=== PATIENT | female | born 1950 | race Caucasian/White ===

== ENCOUNTER 2018-02-26 10:09 | Day surgery (SDC) | payer MEDICARE ==
[2018-02-23 09:11] VITALS: BMI 25.6
[~2018-02-26 10:09] MED LIST: LACTATED RINGERS 1,000 ML IV SCH; LIDOCAINE 1% 20 ML VIAL (10MG/ML) FOR IV START INTRADERMA PRN
[2018-02-26 10:31] VITALS: TEMP 98.7
[2018-02-26] MEDS ORDERED: LIDOCAINE 1% 20 ML VIAL (10MG/ML) FOR IV START INTRADERMA ONE (10:31)
[2018-02-26] MEDS ORDERED: LACTATED RINGERS 1,000 ML IV ONE (10:31)
[2018-02-26] MEDS ORDERED: PROPOFOL 10 MG/ML 20 ML VIAL IV ONE (10:56)
[2018-02-26] MEDS ORDERED: LIDOCAINE 1% INJ 10MG/ML (20 ML MDV) ONE (10:56)
--- NOTE | 2018-02-26 10:57 | P.GSHP ---
History of Present Illness H&P Date: 02/26/18 Chief Complaint: Screening colonoscopy This is a 67-year-old female who presents today for screening colonoscopy. Patient denies any significant GI complaints. Past Medical History Past Medical History: Osteoarthritis (OA), Pneumonia, Thyroid Disorder Additional Past Medical History / Comment(s): 2 "small aortic aneurysms", varicose veins, environmental allergies, History of Any Multi-Drug Resistant Organisms: None Reported Past Surgical History: Hysterectomy Additional Past Surgical History / Comment(s): hemorrhoidectomy, Past Anesthesia/Blood Transfusion Reactions: Motion Sickness Smoking Status: Former smoker - Past Family History Mother Family Medical History: Cancer Medications and Allergies Home Medications Medication Instructions Recorded Confirmed Type Calcium Carbonate [Calcium] 600 mg PO DAILY 02/23/18 02/23/18 History Levothyroxine Sodium [Synthroid] 50 mcg PO DAILY 02/23/18 02/23/18 History Loratadine-Pseudoeph 10-240 mg 1 each PO DAILY 02/23/18 02/23/18 History [Claritin-D 24 Hr] Allergies Allergy/AdvReac Type Severity Reaction Status Date / Time aspirin Allergy Dyspnea Verified 02/23/18 09:03 propoxyphene [From Darvon] Allergy Dyspnea Verified 02/23/18 09:03 Sulfa (Sulfonamide Allergy Vomiting Verified 02/23/18 09:04 Antibiotics) Surgical - Exam Vital Signs Temp Pulse Resp BP Pulse Ox 98.7 F 64 18 142/78 98 02/26/18 10:30 02/26/18 10:30 02/26/18 10:30 02/26/18 10:30 02/26/18 10:30 - General well developed, no distress - Eyes PERRL - ENT normal pinna - Neck no masses - Respiratory normal expansion - Cardiovascular Rhythm: regular - Abdomen Abdomen: soft, non tender Assessment and Plan Assessment: We'll perform screening colonoscopy.
--- NOTE | 2018-02-26 11:19 | P.OP ---
Date of Procedure: 02/26/18 Preoperative Diagnosis: Screening colonoscopy Postoperative Diagnosis: Right colon polyp Hepatic flexure polyp External hemorrhoids Procedure(s) Performed: Colonoscopy Anesthesia: MAC Surgeon: Geovani Boudreaux Pathology: other (Right colon polyp, hepatic flexure polyp) Condition: stable Disposition: PACU Description of Procedure: The patient's placed on the endoscopy table in the lateral position. She received IV sedation. Digital rectal exam was performed which revealed external hemorrhoids. The flexible colonoscope was then placed patient anus and passed throughout the entire colon. The ileocecal valve was visually is. The cecum appeared normal. In the ascending colon there was a small polyp seen was removed with the cold forcep. Scope was brought back and at the level hepatic flexure there was another polyp seen was removed with the snare. The remainder of the transverse colon, descending colon and sigmoid colon appeared normal. Scope was then brought back the rectum and this appeared normal. Scope was withdrawn for patient.
[2018-02-26 11:49] VITALS: PULSE 55; RESP 1
[2018-02-26 11:50] VITALS: BP 136/81
== END 2018-02-26 12:23 | disposition home or self-care (01) ==
LOC: ORWHC2ENDO 10:09
PROVIDERS: ATTEND Surgery
DX: Z12.11 Encounter for screening for malignant neoplasm of colon (principal); K63.5 Polyp of colon; D12.2 Benign neoplasm of ascending colon; K64.4 Residual hemorrhoidal skin tags; M19.90 Unspecified osteoarthritis, unspecified site; E07.9 Disorder of thyroid, unspecified; Z87.891 Personal history of nicotine dependence; Z79.890 Hormone replacement therapy; Z88.6 Allergy status to analgesic agent; Z88.2 Allergy status to sulfonamides; Z88.5 Allergy status to narcotic agent; Z79.899 Other long term (current) drug therapy
CPT/HCPCS: 88305; 45385; 45380; J2001; J2704

== ENCOUNTER → 2018-02-28 | Outpatient (CLI) | payer MEDICARE ==
--- NOTE | 2018-03-01 08:34 | MM ---
Reason for exam: additional evaluation requested from prior study. History: Patient is postmenopausal. Family history of breast cancer in mother at age 70 and breast cancer in 2 maternal aunts at age 60. Left breast biopsy denign at age 19. Indicated problem(s): other indicated problem in both breasts. Physical Findings: Nurse Summary: Skin lesions covering bilateral breasts. MG 3D Diag Mammo W/Cad LUZ Bilateral CC and MLO view(s) were taken. The breast tissue is heterogeneously dense. This may lower the sensitivity of mammography. There is a 4 mm right central inner anterior depth mass new from the prior. Ultrasound will be performed. There is a left medial middle depth asymmetry and an additional superior left asymmetry. ASSESSMENT: Incomplete: need additional imaging evaluation, BI-RAD 0 RECOMMENDATION: Special view mammogram of the left breast. Ultrasound of the right breast.
== END | disposition home or self-care (01) ==
LOC: RADMAMWWP 14:00
PROVIDERS: ATTEND Family Medicine
DX: N63.0 Unspecified lump in unspecified breast (principal)
CPT/HCPCS: 77066; G0279; 77062

== ENCOUNTER → 2018-03-20 | Outpatient (CLI) | payer MEDICARE ==
--- NOTE | 2018-03-21 07:03 | XR ---
EXAMINATION TYPE: XR chest 2V DATE OF EXAM: 03/20/2018 COMPARISON: NONE HISTORY: Shortness of breath TECHNIQUE: Frontal and lateral views of the chest are obtained. FINDINGS: Scattered senescent parenchymal changes noted. Hyperinflation compatible with COPD. No evidence for infiltrate. No evidence for atelectasis. Heart size is stable. Mediastinal structures are stable and grossly unremarkable. No evidence for hilar prominence. Degenerative changes dorsal spine. IMPRESSION: 1. No evidence for acute pulmonary disease.
--- NOTE | 2018-03-21 08:14 | MM ---
Reason for exam: additional evaluation requested from abnormal screening. Last mammogram was performed 1 month ago. History: Patient is postmenopausal. Family history of breast cancer in mother at age 70 and breast cancer in 2 maternal aunts at age 60. Benign excisional biopsy of the left breast, 1969. Physical Findings: See breast exam 02/28/18. MG 3D Follow Up No Charge LUZ Bilateral CC and MLO view(s) were taken. Spot compression CC, spot compression MLO, and ML view(s) were taken of the left breast. Prior study comparison: February 28, 2018, bilateral MG 3d diag mammo w/cad LUZ. The breast tissue is heterogeneously dense. This may lower the sensitivity of mammography. Finding: There is an equal density (isodense), circumscribed oval mass located 2 cm from the nipple in the inner quadrant, anterior position of the right breast. This appears to compress. Doesn't correlate with ultrasound. Short term follow up recommended. There is no discrete abnormality including area of concern. These results were verbally communicated with the patient and result sheet given to the patient on 03/20/18. ASSESSMENT: Probably benign, BI-RAD 3 RECOMMENDATION: Follow-up diagnostic mammogram of both breasts in 6 months.
--- NOTE | 2018-03-21 08:16 | USB ---
Reason for exam: additional evaluation requested from abnormal screening. History: Patient is postmenopausal. Family history of breast cancer in mother at age 70 and breast cancer in 2 maternal aunts at age 60. Benign excisional biopsy of the left breast, 1969. US Breast Workup Limited RT Right limited breast ultrasound including focal area of concern, retroareolar and axilla demonstrates a 1.2 x 0.6 x 0.4cm mixed lesion at 12 o'clock, a 0.6 x 0.6 x 0.2cm cystic lesion at 3 o'clock and a 0.4 x 0.3 x 0.3cm cystic lesion at 5 o'clock. These results were verbally communicated with the patient and result sheet given to the patient on 03/20/18. ASSESSMENT: Probably benign, BI-RAD 3 RECOMMENDATION: Ultrasound of the right breast in 6 months.
--- NOTE | 2018-03-22 11:11 | USB ---
Reason for exam: additional evaluation requested from abnormal screening. History: Patient is postmenopausal. Family history of breast cancer in mother at age 70 and breast cancer in 2 maternal aunts at age 60. Benign excisional biopsy of the left breast, 1969. US Breast Limited RT Right limited breast ultrasound including focal area of concern, retroareolar and axilla demonstrates a 1.2 x 0.6 x 0.4cm mixed lesion at 12 o'clock, a 0.6 x 0.6 x 0.2cm cystic lesion at 3 o'clock and a 0.4 x 0.3 x 0.3cm cystic lesion at 5 o'clock. These results were verbally communicated with the patient and result sheet given to the patient on 03/20/18. ASSESSMENT: Probably benign, BI-RAD 3 RECOMMENDATION: Ultrasound of the right breast in 6 months.
== END | disposition home or self-care (01) ==
LOC: RADMAMWWP 14:52
PROVIDERS: ATTEND Family Medicine
DX: R92.8 Other abnormal and inconclusive findings on diagnostic imaging of breast (principal); J18.9 Pneumonia, unspecified organism
CPT/HCPCS: 71046

== ENCOUNTER 2020-04-23 08:32 | Day surgery (SDC) | payer MEDICARE ==
[2020-04-21 16:14] VITALS: BMI 24.7
[~2020-04-23 08:32] MED LIST changes: +LIDOCAINE 1% (10MG/ML) FOR IV START INTRADERMA PRN; -LIDOCAINE 1% 20 ML VIAL (10MG/ML) FOR IV START INTRADERMA PRN
[2020-04-23 09:54] VITALS: RESP 16; TEMP 98
[2020-04-23] MEDS ORDERED: PROPOFOL 10 MG/ML 20 ML VIAL IV ONE (10:24)
[2020-04-23] MEDS ORDERED: MIDAZOLAM 2 MG/2 ML VIAL ONE (10:24)
[2020-04-23] MEDS ORDERED: fentaNYL (PF) 50 MCG/ML 2 ML AMP ONE (10:24)
--- NOTE | 2020-04-23 10:27 | P.GSHP ---
History of Present Illness H&P Date: 04/23/20 Chief Complaint: History: Polyps, constipation Is a 60-year-old female with history of colonic polyps. Patient rents today for colonoscopy. She's also had issues with constipation Past Medical History Past Medical History: Osteoarthritis (OA), Pneumonia, Thyroid Disorder Additional Past Medical History / Comment(s): 2 "aortic aneurysms", varicose veins, environmental allergies, pre-cancerous cervical cells., Constipation with blood in stool, painful bowelmovements , family hx cancer. History of Any Multi-Drug Resistant Organisms: None Reported Past Surgical History: Hysterectomy Additional Past Surgical History / Comment(s): hemorrhoidectomy, colonoscopy Past Anesthesia/Blood Transfusion Reactions: Motion Sickness Past Psychological History: Anxiety, Depression Smoking Status: Former smoker Past Alcohol Use History: Rare Additional Past Alcohol Use History / Comment(s): quit smoking over 50 yrs ago, smoked for 1 yr Past Drug Use History: None Reported - Past Family History Mother Family Medical History: Cancer Additional Family Medical History / Comment(s): family hx of cancer on mothers side. Medications and Allergies Home Medications Medication Instructions Recorded Confirmed Type Calcium Carbonate [Calcium] 600 mg PO DAILY 02/23/18 04/21/20 History Levothyroxine Sodium [Synthroid] 50 mcg PO DAILY 02/23/18 04/21/20 History Docusate Sodium [Dok] 1 dose PO DIRECTED PRN 04/21/20 04/21/20 History Loratadine 10 mg PO DAILY 04/21/20 04/21/20 History Meclizine [Antivert] 25 mg PO TID PRN 04/21/20 04/21/20 History buPROPion XL [Wellbutrin Xl] 150 mg PO DAILY 04/21/20 04/21/20 History Allergies Allergy/AdvReac Type Severity Reaction Status Date / Time aspirin Allergy Dyspnea Verified 04/23/20 09:35 propoxyphene [From Darvon] Allergy Dyspnea Verified 04/23/20 09:35 Sulfa (Sulfonamide Allergy Vomiting Verified 04/23/20 09:35 Antibiotics) Surgical - Exam Vital Signs Temp Pulse Resp BP Pulse Ox 98.0 F 67 16 130/73 98 04/23/20 09:45 04/23/20 09:45 04/23/20 09:45 04/23/20 09:45 04/23/20 09:45 - General well developed, well nourished, no distress - Eyes PERRL - ENT normal pinna - Neck no masses - Respiratory normal expansion - Cardiovascular Rhythm: regular - Abdomen Abdomen: soft, non tender Assessment and Plan Assessment: History of colonic polyps, constipation. We'll perform colonoscopy
[2020-04-23] MEDS ORDERED: IV FLUID CONTINUATION 1,000 ML IV ONE (10:47)
[2020-04-23 11:18] VITALS: BP 144/80; PULSE 54
--- NOTE | 2020-05-18 12:29 | P.OP ---
Date of Procedure: 04/23/20 Preoperative Diagnosis: History of colon polyps Postoperative Diagnosis: Right colon polyp Procedure(s) Performed: Colonoscopy Anesthesia: MAC Surgeon: Geovani Boudreaux Pathology: other (Right colon polyp) Condition: stable Disposition: PACU Description of Procedure: The patient's placed on the endoscopy table in the lateral position she received IV sedation. Digital rectal exam was performed which revealed no abnormalities. Flexible colonoscope was then placed patient anus passed throughout the entire colon. Ileocecal valve sutures. The cecum appeared normal. In the ascending colon was a small polyp seen this removed with the snare. The remainder ascending colon, transverse colon appeared normal. The descending; was mild diverticular changes. Scope summer back the rectum and this appeared normal. Scope was withdrawn for patient.
== END 2020-04-23 11:48 | disposition home or self-care (01) ==
LOC: ORWHC2ENDO 08:32
PROVIDERS: ATTEND Surgery
DX: D12.2 Benign neoplasm of ascending colon (principal); K57.30 Diverticulosis of large intestine without perforation or abscess without bleeding; Z86.010 Personal history of colon polyps; M19.90 Unspecified osteoarthritis, unspecified site; E07.9 Disorder of thyroid, unspecified; I71.9 Aortic aneurysm of unspecified site, without rupture; F41.9 Anxiety disorder, unspecified; F32.9 Major depressive disorder, single episode, unspecified; I83.90 Asymptomatic varicose veins of unspecified lower extremity; Z87.891 Personal history of nicotine dependence; Z87.01 Personal history of pneumonia (recurrent); Z90.710 Acquired absence of both cervix and uterus; Z98.890 Other specified postprocedural states; Z80.9 Family history of malignant neoplasm, unspecified; Z79.899 Other long term (current) drug therapy; Z79.890 Hormone replacement therapy; Z88.6 Allergy status to analgesic agent; Z88.5 Allergy status to narcotic agent; Z88.2 Allergy status to sulfonamides
CPT/HCPCS: 88305; 45385; J2250; J3010; J2704; 45380

== ENCOUNTER → 2020-05-20 | Outpatient (CLI) | payer MEDICARE ==
--- NOTE | 2020-05-22 11:34 | MM ---
Reason for exam: screening (asymptomatic). Last mammogram was performed 2 years and 2 months ago. History: Patient is postmenopausal. Family history of breast cancer in mother at age 70 and breast cancer in 2 maternal aunts at age 60. Benign excisional biopsy of the left breast, 1970. Physical Findings: A clinical breast exam by your physician is recommended on an annual basis and results should be correlated with mammographic findings. MG 3D Screening Mammo W/Cad Bilateral CC and MLO view(s) were taken. Prior study comparison: February 28, 2018, bilateral MG 3d diag mammo w/cad LUZ. The breast tissue is heterogeneously dense. This may lower the sensitivity of mammography. New nodularity measuring up to 1.0cm in the 11-12 o'clock central right breast. ASSESSMENT: Incomplete: need additional imaging evaluation, BI-RAD 0 RECOMMENDATION: Special view mammogram of the right breast. (3D) If lesion persists on supplemental views, image directed ultrasound is recommended. [facility] will attempt to contact patient to return for supplemental views and ultrasound if indicated.
== END | disposition home or self-care (01) ==
LOC: RADMAMWWP 16:26
PROVIDERS: ATTEND Family Medicine
DX: Z12.31 Encounter for screening mammogram for malignant neoplasm of breast (principal); Z78.0 Asymptomatic menopausal state; Z80.3 Family history of malignant neoplasm of breast
CPT/HCPCS: 77063; 77067

== ENCOUNTER → 2020-06-02 | Outpatient (CLI) | payer MEDICARE ==
--- NOTE | 2020-06-03 08:41 | MM ---
Reason for exam: additional evaluation requested from abnormal screening. Last mammogram was performed less than 1 month ago. History: Patient is postmenopausal. Family history of breast cancer in mother at age 70 and breast cancer in 2 maternal aunts at age 60. Benign excisional biopsy of the left breast, 1969. Physical Findings: Nurse did not find any significant physical abnormalities on exam. MG 3D Work Up W/Cad RT Spot compression CC, spot compression MLO, and LM view(s) were taken of the right breast. Prior study comparison: May 20, 2020, bilateral MG 3d screening mammo w/cad. March 20, 2018, bilateral MG 3d follow up no charge LUZ. The breast tissue is heterogeneously dense. This may lower the sensitivity of mammography. 1cm circumscribed mass 11 o'clock right breast. These results were verbally communicated with the patient and result sheet given to the patient on 06/02/20. ASSESSMENT: Incomplete: need additional imaging evaluation, BI-RAD 0 RECOMMENDATION: Ultrasound of the right breast.
--- NOTE | 2020-06-03 08:43 | USB ---
Reason for exam: additional evaluation requested from abnormal screening. History: Patient is postmenopausal. Family history of breast cancer in mother at age 70 and breast cancer in 2 maternal aunts at age 60. Benign excisional biopsy of the left breast, 1969. US Breast Workup Limited RT Right limited breast ultrasound including focal area of concern, retroareolar and axilla demonstrates a 8 x 6 x 7mm lobular, cystic lesion at 11 o'clock probably corresponds to the mammographic finding, 6 month follow up mammogram recommended and a 7mm oval lymph node at the axilla tail. A few additional smaller cysts are also present just adjacent at 11 o'clock. Scanned 9-12 o'clock. These results were verbally communicated with the patient and result sheet given to the patient on 06/02/20. ASSESSMENT: Probably benign, BI-RAD 3 RECOMMENDATION: Follow-up diagnostic mammogram of the right breast in 6 months.
== END | disposition home or self-care (01) ==
LOC: RADMAMWWP 14:32
PROVIDERS: ATTEND Family Medicine
DX: R92.8 Other abnormal and inconclusive findings on diagnostic imaging of breast (principal)
CPT/HCPCS: 77065; 76642; G0279; 77061

== ENCOUNTER → 2021-12-29 | Outpatient (CLI) | payer MEDICARE ==
--- NOTE | 2021-12-29 09:40 | MM ---
Reason for Exam: Additional evaluation requested from prior study. Last mammogram was performed 1 year(s) and 7 month(s) ago. Patient History: Menarche at age 12. First Full-Term at age 22. Left ovary removed at age 55. Right ovary removed at age 55. Hysterectomy at age 55. Postmenopausal. 1970, Benign Excisional Biopsy on the left side. Maternal aunt had breast cancer, age 60. Maternal aunt had breast cancer, age 60. Mother had breast cancer, age 70. Risk Values: Aleisha 5 year model risk: 3.9%. NCI Lifetime model risk: 10.6%. Prior Study Comparison: 02/28/2018 Bilateral Diagnostic Mammogram, [facility]. 03/20/2018 Bilateral Diagnostic Mammogram, [facility]. 03/20/2018 Right Diagnostic Ultrasound, [facility]. 05/20/2020 Bilateral Screening Mammogram, [facility]. 06/02/2020 Right Diagnostic Mammogram, [facility]. 06/02/2020 Right Diagnostic Ultrasound, [facility]. Tissue Density: The breast tissue is heterogeneously dense. This may lower the sensitivity of mammography. Findings: Analyzed By CAD. The right breast retroareolar region middle depth, upper outer quadrant mass measures up to 16 mm, previously 9 mm. This is approximately 4 cm from the nipple. In the left breast upper outer quadrant at posterior depth is a 9 mm mass approximately 5.3 cm from the nipple. No suspicious calcifications. Overall Assessment: Incomplete: need additional imaging evaluation, BI-RAD 0 Management: Diagnostic Breast Ultrasound of both breasts. Targeted ultrasound of the bilateral breasts. A clinical breast exam by your physician is recommended on an annual basis and results should be correlated with mammographic findings. This exam should not preclude additional follow-up of suspicious palpable abnormalities. Results were given to the patient verbally at the time of exam. Electronically signed and approved by: Lefty Rodriguez DO
--- NOTE | 2021-12-29 10:08 | USB ---
Reason for Exam: Follow-up at short interval from prior study. Patient History: Menarche at age 12. First Full-Term at age 22. Left ovary removed at age 55. Right ovary removed at age 55. Hysterectomy at age 55. Postmenopausal. 1970, Benign Excisional Biopsy on the left side. Maternal aunt had breast cancer, age 60. Maternal aunt had breast cancer, age 60. Mother had breast cancer, age 70. Risk Values: Aleisha 5 year model risk: 3.9%. NCI Lifetime model risk: 10.6%. Technique: Method: Targeted. Prior Study Comparison: 03/20/2018 Bilateral Diagnostic Mammogram, [facility]. 05/20/2020 Bilateral Screening Mammogram, [facility]. 06/02/2020 Right Diagnostic Mammogram, [facility]. Findings: The upper outer quadrant of the left breast, the axilla of both breasts and the retroareolar of both breasts were scanned. Right breast 11:00 and left breast upper outer quadrant were scanned. * Right breast 11:00 o'clock 4 cm from the nipple nipple is a anechoic cystic structure with thin septation which measures larger at 16 mm compared to prior. There is posterior acoustic enhancement. Additional small cystic satellite cysts are felt to be present. * Left breast 1:00 5 cm from nipple demonstrates anechoic cyst with thin septation versus cluster of cysts. The largest measuring up to 8 mm. There is posterior acoustic enhancement. No suspicious masses identified. Overall Assessment: Benign, BI-RAD 2 Management: Screening Mammogram of both breasts in 1 year. A clinical breast exam by your physician is recommended on an annual basis and results should be correlated with mammographic findings. This exam should not preclude additional follow-up of suspicious palpable abnormalities. Results were given to the patient verbally at the time of exam. Electronically signed and approved by: Lefty Rodriguez DO
== END | disposition home or self-care (01) ==
LOC: RADMAMWWP 09:00
PROVIDERS: ATTEND Family Medicine
DX: R92.8 Other abnormal and inconclusive findings on diagnostic imaging of breast (principal); Z78.0 Asymptomatic menopausal state; Z80.3 Family history of malignant neoplasm of breast; Z90.721 Acquired absence of ovaries, unilateral
CPT/HCPCS: 77066; 76642; G0279; 77062

== ENCOUNTER → 2023-01-23 | Outpatient (CLI) | payer MEDICARE ==
--- NOTE | 2023-01-24 21:26 | MM ---
Reason for Exam: Screening (asymptomatic). Last mammogram was performed 1 year(s) and 1 month(s) ago. Patient History: Menarche at age 12. First Full-Term at age 22. Left ovary removed at age 55. Right ovary removed at age 55. Hysterectomy at age 55. Postmenopausal. 1970, Benign Excisional Biopsy on the left side. Maternal aunt had breast cancer, age 60. Maternal aunt had breast cancer, age 60. Mother had breast cancer, age 70. Risk Values: Leroy 5 year model risk: 4.0%. NCI Lifetime model risk: 10.1%. Prior Study Comparison: 05/20/2020 Bilateral Screening Mammogram, [facility]. 06/02/2020 Right Diagnostic Mammogram, [facility]. 12/29/2021 Bilateral MG 3D diag mammo w/cad LUZ, [facility]. Tissue Density: The breast tissue is heterogeneously dense. This may lower the sensitivity of mammography. Findings: Analyzed By CAD. Redemonstrated bilateral circumscribed nodularity in an overall benign pattern. There is no suspicious group of microcalcifications or new suspicious mass in either breast. Overall Assessment: Benign, BI-RAD 2 Management: Screening Mammogram of both breasts in 1 year. SEE NOTE BELOW IN REGARDS TO PATIENT'S INCREASED FIVE-YEAR LEROY SCORE. Patient should continue monthly self-breast exams. A clinical breast exam by your physician is recommended on an annual basis. This exam should not preclude additional follow-up of suspicious palpable abnormalities. Note on Leroy scores and lifetime risk: 1. A Leroy score greater than 3% is considered moderate risk. If this is the case, consider specialist referral to assess eligibility for a risk reducing agent. 2. If overall lifetime risk for the development of breast cancer is 20% or higher, the patient may qualify for future screening with alternating mammogram and breast MRI. Electronically signed and approved by: Brianna Swanson M.D. Radiologist
== END | disposition home or self-care (01) ==
LOC: RADMAMWWP 16:07
PROVIDERS: ATTEND Family Medicine
DX: Z12.31 Encounter for screening mammogram for malignant neoplasm of breast (principal); Z80.3 Family history of malignant neoplasm of breast; Z78.0 Asymptomatic menopausal state
CPT/HCPCS: 77063; 77067

== ENCOUNTER 2023-04-08 08:27 | Emergency (ER) | payer MEDICARE ==
[2023-04-08 09:28] LABS: Basophils % (A) 0 %; Eosinophils # (A) 0.2 k/uL (0-0.7); Eosinophils % (A) 2 %; HCT 38.1 % (34.0-46.0); HGB 12.8 gm/dL (11.4-16.0); Lymphocytes # (A) 0.7 k/uL (1.0-4.8); Lymphocytes % (A) 8 %; MCHC 33.5 g/dL (31.0-37.0); MCV 89.6 fL (80.0-100.0); Mean Platelet Volume 7.2; Monocytes # (A) 0.5 k/uL (0-1.0); Monocytes % (A) 5 %; Neutrophils # (A) 7.2 k/uL (1.3-7.7); Neutrophils % (A) 84 %; Platelet Count 285 k/uL (150-450); RBC 4.26 m/uL (3.80-5.40); RDW 12.3 % (11.5-15.5); WBC 8.6 k/uL (3.8-10.6)
--- NOTE | 2023-04-08 09:41 | ED ---
General Adult HPI - General Chief complaint: Upper Respiratory Infection Stated complaint: Chest Pains/SOB Time Seen by Provider: 04/08/23 08:45 Source: patient Mode of arrival: ambulatory Limitations: no limitations - History of Present Illness Initial comments: 72-year-old female presents emergency department reporting cough and continued urinary tract infection. Patient reports that she was diagnosed with a urinary tract infection from an urgent care. She was placed on Macrobid. She has been taking medication as directed for the past 2 days but continues to have burning with urination. She states that on top of this she began having symptoms of an upper respiratory infection. Admits to nonproductive cough. Congestion in her chest. Myalgias. Denies any fevers. No chest pain. No history of cardiac disease. No nausea or vomiting. Patient admits that she does have some discomfort when she takes a deep breath just because her chest wall feels sore. She has not taken anything [id number] for her cough. No sick contacts. No other alleviating, precipitating modifying factors - Related Data Home Medications Medication Instructions Recorded Confirmed Calcium Carbonate [Calcium] 600 mg PO DAILY 02/23/18 04/21/20 Levothyroxine Sodium [Synthroid] 50 mcg PO DAILY 02/23/18 04/21/20 Docusate Sodium [Dok] 1 dose PO DIRECTED PRN 04/21/20 04/21/20 Loratadine 10 mg PO DAILY 04/21/20 04/21/20 Meclizine [Antivert] 25 mg PO TID PRN 04/21/20 04/21/20 buPROPion XL [Wellbutrin Xl] 150 mg PO DAILY 04/21/20 04/21/20 Previous Rx's Medication Instructions Recorded Albuterol Inhaler [Ventolin Hfa 1 puff INHALATION QID #8 gm 04/08/23 Inhaler] Levofloxacin [Levaquin] 750 mg PO DAILY 1 Days #7 tab 04/08/23 methylPREDNISolone Dose Pack 4 mg PO DIRECTED #21 tab 04/08/23 [Medrol Dose Pack] Allergies Allergy/AdvReac Type Severity Reaction Status Date / Time aspirin Allergy Dyspnea Verified 04/08/23 08:39 propoxyphene [From Darvon] Allergy Dyspnea Verified 04/08/23 08:39 Sulfa (Sulfonamide Allergy Vomiting Verified 04/08/23 08:39 Antibiotics) Review of Systems ROS Statement: Those systems with pertinent positive or pertinent negative responses have been documented in the HPI. ROS Other: All systems not noted in ROS Statement are negative. Past Medical History Past Medical History: Osteoarthritis (OA), Pneumonia, Thyroid Disorder Additional Past Medical History / Comment(s): 2 "small aortic aneurysms", varicose veins, environmental allergies, History of Any Multi-Drug Resistant Organisms: None Reported Past Surgical History: Hysterectomy Additional Past Surgical History / Comment(s): hemorrhoidectomy, Past Anesthesia/Blood Transfusion Reactions: Motion Sickness Past Psychological History: No Psychological Hx Reported Smoking Status: Former smoker Past Alcohol Use History: Rare Past Drug Use History: None Reported - Past Family History Mother Family Medical History: Cancer Additional Family Medical History / Comment(s): family hx of cancer on mothers side. General Exam Limitations: no limitations General appearance: alert, in no apparent distress Head exam: Present: atraumatic, normocephalic, normal inspection Eye exam: Present: normal appearance, PERRL, EOMI. Absent: scleral icterus, conjunctival injection, periorbital swelling ENT exam: Present: normal exam, mucous membranes moist Neck exam: Present: normal inspection. Absent: tenderness, meningismus, lymphadenopathy Respiratory exam: Present: normal lung sounds bilaterally. Absent: respiratory distress, wheezes, rales, rhonchi, stridor Cardiovascular Exam: Present: regular rate, normal rhythm, normal heart sounds. Absent: systolic murmur, diastolic murmur, rubs, gallop, clicks GI/Abdominal exam: Present: soft, normal bowel sounds. Absent: distended, tenderness, guarding, rebound, rigid Extremities exam: Present: normal inspection, full ROM, normal capillary refill. Absent: tenderness, pedal edema, joint swelling, calf tenderness Back exam: Present: normal inspection Neurological exam: Present: alert, oriented X3, CN II-XII intact Psychiatric exam: Present: normal affect, normal mood Skin exam: Present: warm, dry, intact, normal color. Absent: rash Course Vital Signs 04/08/23 04/08/23 04/08/23 08:34 09:03 11:25 Temperature 99.1 F 98.8 F Pulse Rate 100 72 Respiratory 18 22 17 Rate Blood Pressure 95/60 123/72 O2 Sat by Pulse 94 L 95 Oximetry Medical Decision Making - Medical Decision Making Was pt. sent in by a medical professional or institution ([facility] Goncal[facility], [employer], urgent care, hospital, or correction...) When possible be specific @ -No Did you speak to anyone other than the patient for history (EMS, parent, family, police, friend...)? What history was obtained from this source @ -No Did you review nursing and triage notes (agree or disagree)? Why? @ -Patient denied chest pain to me Were old charts reviewed (outside hosp., previous admission, EMS record, old EKG, old radiological studies, urgent care reports/EKG's, correction records)? Report findings @ -No old charts were reviewed Differential Diagnosis (chest pain, altered mental status, abdominal pain women, abdominal pain men, vaginal bleeding, weakness, fever, dyspnea, syncope, headache, dizziness, GI bleed, back pain, seizure, CVA, palpatations, mental health, musculoskeletal)? @ -COVID, influenza, pneumonia, urinary tract infection EKG interpreted by me (3pts min.). @ -Yes and demonstrates sinus rhythm with a rate of 87. LA interval 155. QRS 96. QTc of 406. No acute ST segment elevations or depressions X-rays interpreted by me (1pt min.). @ -Yes and demonstrates pneumonia CT interpreted by me (1pt min.). @ -None done U/S interpreted by me (1pt. min.). @ -None done What testing was considered but not performed or refused? (CT, X-rays, U/S, labs)? Why? @ -None What meds were considered but not given or refused? Why? @ -Cough suppressants however patient refused Did you discuss the management of the patient with other professionals (professionals i.e. [facility] Goncalves, [employer], lab, RT, psych nurse, health care social worker, orientation and mobility instructor, teacher, aoc director combat operations officer, piano case and bench assembler)? Give summary @ -No Was smoking cessation discussed for >3mins.? @ -No Was critical care preformed (if so, how long)? @ -No Were there social determinants of health that impacted care today? How? (Homelessness, low income, unemployed, alcoholism, drug addiction, transportation, low edu. Level, literacy, decrease access to med. care, prison, rehab)? @ -No Was there de-escalation of care discussed even if they declined (Discuss DNR or withdrawal of care, Hospice)? DNR status @ -No What co-morbidities impacted this encounter? (DM, HTN, Smoking, COPD, CAD, Cancer, CVA, ARF, Chemo, Hep., AIDS, mental health diagnosis, sleep apnea, morbid obesity)? @ -None Was patient admitted / discharged? Hospital course, mention meds given and route, prescriptions, significant lab abnormalities, going to OR and other pertinent info. @ -Discharge. Upon arrival patient placed in room 7. Thorough history and physical exam was performed. Labs were conducted. Chest x-ray was completed. Results are discussed with the patient. Patient has continued urinary tract infection therefore recommended changing her antibiotics. As patient does have newly diagnosed pneumonia I did recommend Levaquin for both. Patient was agreeable to this. I also started her on an albuterol inhaler. Patient is to follow-up with her primary care doctor in 2 to 4 days. Return for any new or worsening symptoms. Patient was agreeable to the plan she was discharged in stable condition Undiagnosed new problem with uncertain prognosis? @ -No Drug Therapy requiring intensive monitoring for toxicity (Heparin, Nitro, Insulin, Cardizem)? @ -No Were any procedures done? @ -No Diagnosis/symptom? @ -Acute cough, community-acquired pneumonia, acute UTI Acute, or Chronic, or Acute on Chronic? @ -Acute Uncomplicated (without systemic symptoms) or Complicated (systemic symptoms)? @ -Complicated Side effects of treatment? @ -No Exacerbation, Progression, or Severe Exacerbation? @ -No Poses a threat to life or bodily function? How? (Chest pain, [place], [place], pneumonia, PE, COPD, DKA, ARF, appy, cholecystitis, CVA, Diverticulitis, Homicidal, Suic idal, threat to staff... and all critical care pts) @ -No - Lab Data Result diagrams: 04/08/23 09:05 04/08/23 09:05 Lab Results 04/08/23 04/08/23 04/08/23 Range/Units 09:05 09:05 09:05 WBC 8.6 (3.8-10.6) k/uL RBC 4.26 (3.80-5.40) m/uL Hgb 12.8 (11.4-16.0) gm/dL Hct 38.1 (34.0-46.0) % MCV 89.6 (80.0-100.0) fL MCH 30.0 (25.0-35.0) pg MCHC 33.5 (31.0-37.0) g/dL RDW 12.3 (11.5-15.5) % Plt Count 285 (150-450) k/uL MPV 7.2 Neutrophils % 84 % Lymphocytes % 8 % Monocytes % 5 % Eosinophils % 2 % Basophils % 0 % Neutrophils # 7.2 (1.3-7.7) k/uL Lymphocytes # 0.7 L (1.0-4.8) k/uL Monocytes # 0.5 (0-1.0) k/uL Eosinophils # 0.2 (0-0.7) k/uL Basophils # 0.0 (0-0.2) k/uL Sodium 136 L (137-145) mmol/L Potassium 3.9 (3.5-5.1) mmol/L Chloride 103 (98-107) mmol/L Carbon Dioxide 25 (22-30) mmol/L Anion Gap 8 mmol/L BUN 14 (7-17) mg/dL Creatinine 0.93 (0.52-1.04) mg/dL Est GFR (CKD-EPI)AfAm 72 (>60 ml/min/1.73 sqM) Est GFR (CKD-EPI)NonAf 62 (>60 ml/min/1.73 sqM) Glucose 148 H (74-99) mg/dL Calcium 9.1 (8.4-10.2) mg/dL Total Bilirubin 0.6 (0.2-1.3) mg/dL AST 22 (14-36) U/L ALT 17 (4-34) U/L Alkaline Phosphatase 70 (38-126) U/L Troponin I (0.000-0.034) ng/mL Total Protein 6.2 L (6.3-8.2) g/dL Albumin 3.5 (3.5-5.0) g/dL Urine Color Dark Yellow Urine Appearance Cloudy H (Clear) Urine pH 5.5 (5.0-8.0) Ur Specific Renick 1.028 (1.001-1.035) Urine Protein 1+ H (Negative) Urine Glucose (UA) Negative (Negative) Urine Ketones Negative (Negative) Urine Blood Negative (Negative) Urine Nitrite Negative (Negative) Urine Bilirubin Negative (Negative) Urine Urobilinogen 2.0 (<2.0) mg/dL Ur Leukocyte Esterase Moderate H (Negative) Urine RBC 4 (0-5) /hpf Urine WBC 69 H (0-5) /hpf Ur Squamous Epith Cells 4 (0-4) /hpf Urine Bacteria Rare H (None) /hpf Hyaline Casts 37 H (0-2) /lpf Urine Mucus Many H (None) /hpf Influenza Type A (PCR) (Not Detectd) Influenza Type B (PCR) (Not Detectd) RSV (PCR) (Not Detectd) SARS-CoV-2 (PCR) (Not Detectd) 04/08/23 04/08/23 Range/Units 09:05 09:05 WBC (3.8-10.6) k/uL RBC (3.80-5.40) m/uL Hgb (11.4-16.0) gm/dL Hct (34.0-46.0) % MCV (80.0-100.0) fL MCH (25.0-35.0) pg MCHC (31.0-37.0) g/dL RDW (11.5-15.5) % Plt Count (150-450) k/uL MPV Neutrophils % % Lymphocytes % % Monocytes % % Eosinophils % % Basophils % % Neutrophils # (1.3-7.7) k/uL Lymphocytes # (1.0-4.8) k/uL Monocytes # (0-1.0) k/uL Eosinophils # (0-0.7) k/uL Basophils # (0-0.2) k/uL Sodium (137-145) mmol/L Potassium (3.5-5.1) mmol/L Chloride (98-107) mmol/L Carbon Dioxide (22-30) mmol/L Anion Gap mmol/L BUN (7-17) mg/dL Creatinine (0.52-1.04) mg/dL Est GFR (CKD-EPI)AfAm (>60 ml/min/1.73 sqM) Est GFR (CKD-EPI)NonAf (>60 ml/min/1.73 sqM) Glucose (74-99) mg/dL Calcium (8.4-10.2) mg/dL Total Bilirubin (0.2-1.3) mg/dL AST (14-36) U/L ALT (4-34) U/L Alkaline Phosphatase (38-126) U/L Troponin I <0.012 (0.000-0.034) ng/mL Total Protein (6.3-8.2) g/dL Albumin (3.5-5.0) g/dL Urine Color Urine Appearance (Clear) Urine pH (5.0-8.0) Ur Specific Renick (1.001-1.035) Urine Protein (Negative) Urine Glucose (UA) (Negative) Urine Ketones (Negative) Urine Blood (Negative) Urine Nitrite (Negative) Urine Bilirubin (Negative) Urine Urobilinogen (<2.0) mg/dL Ur Leukocyte Esterase (Negative) Urine RBC (0-5) /hpf Urine WBC (0-5) /hpf Ur Squamous Epith Cells (0-4) /hpf Urine Bacteria (None) /hpf Hyaline Casts (0-2) /lpf Urine Mucus (None) /hpf Influenza Type A (PCR) Not Detected (Not Detectd) Influenza Type B (PCR) Not Detected (Not Detectd) RSV (PCR) Not Detected (Not Detectd) SARS-CoV-2 (PCR) Not Detected (Not Detectd) Disposition Clinical Impression: Pneumonia, Cough, UTI (urinary tract infection) Disposition: HOME SELF-CARE Condition: Stable Instructions (If sedation given, give patient instructions): Urinary Tract Infection in Women (DC), Community Acquired Pneumonia (ED) Additional Instructions: Rest and increase fluids. Use the inhaler today. Start the antibiotics and steroid tomorrow as you received your first dose in the emergency department. Return for any new or worsening symptoms Prescriptions: Levofloxacin [Levaquin] 750 mg PO DAILY 1 Days #7 tab methylPREDNISolone Dose Pack [Medrol Dose Pack] 4 mg PO DIRECTED #21 tab Albuterol Inhaler [Ventolin Hfa Inhaler] 1 puff INHALATION QID #8 gm Is patient prescribed a controlled substance at d/c from ED?: No Referrals: Gavin Luis DO [Primary Care Provider] - 1-2 days Time of Disposition: 11:15
[2023-04-08 09:42] LABS: Potassium 3.9 mmol/L (3.5-5.1)
[2023-04-08 09:43] LABS: ALT 17 U/L (4-34); AST 22 U/L (14-36); African American GFR (CKD) 72 (>60 ml/min/1.73 sqM); Albumin 3.5 g/dL (3.5-5.0); Alkaline Phosphatase 70 U/L (38-126); Anion Gap 8 mmol/L; Blood Urea Nitrogen 14 mg/dL (7-17); Calcium 9.1 mg/dL (8.4-10.2); Carbon Dioxide 25 mmol/L (22-30); Chloride 103 mmol/L (98-107); Glucose 148 mg/dL (74-99); Non-African American GFR(CKD) 62 (>60 ml/min/1.73 sqM); Sodium 136 mmol/L (137-145); Total Bilirubin 0.6 mg/dL (0.2-1.3); Total Protein 6.2 g/dL (6.3-8.2)
[2023-04-08 09:45] LABS: Appearance,Urine Cloudy (Clear); Bacteria,Urine Rare /hpf; Bilirubin,Urine Negative (Negative); Blood,Urine Negative (Negative); Color,Urine Dark Yellow; Glucose,Urine (UA) Negative (Negative); Hyaline Casts,Urine 37 /lpf (0-2); Ketones,Urine Negative (Negative); Leukocyte Esterase,Urine Moderate (Negative); Mucus,Urine Many /hpf; Nitrite,Urine Negative (Negative); PH, Urine 5.5 (5.0-8.0); Protein,Urine 1+ (Negative); RBC,Urine 4 /hpf (0-5); Specific Gravity,Urine 1.028 (1.001-1.035); Squamous Epithelial Cell,Urine 4 /hpf (0-4); WBC,Urine 69 /hpf (0-5)
--- NOTE | 2023-04-08 09:51 | XR ---
EXAMINATION TYPE: XR chest 2V DATE OF EXAM: 04/08/2023 9:27 AM CLINICAL INDICATION:Female, 72 years old with history of Chest Pain; [facility] COMPARISON: None TECHNIQUE: XR chest 2V. Frontal and lateral views of the chest.. FINDINGS: Lines/Tubes/Devices: No indwelling lines are seen. Heart/mediastinum: Heart size upper normal. Mildly tortuous and partially calcified aorta. Pulmonary vascularity: Not increased, Lungs/Pleura: Mild parenchymal/pleural opacity in the left lung base. There is no evidence of focal c onsolidation, or pneumothorax. Increased interstitial lung markings, likely chronic changes. Musculoskeletal: No acute osseous abnormality demonstrated in the limits of the exam. Multilevel en dplate spurring in the spine. Levocurvature in the inferior thoracic spine. Other findings: None. IMPRESSION: Mild left basilar infiltrate or atelectasis, with possible tiny effusion.
[2023-04-08] MEDS: SODIUM CHLORIDE 0.9% 1,000 ML IV STA ×2 (10:03)
[2023-04-08] MEDS: cefTRIAXone IN SWFI 1,000 MG/10 ML SYRINGE IVP STA (10:17)
[2023-04-08] MEDS: methylPREDNISolone SOD SUCCI 125 MG/2 ML VIAL IV STA (11:25)
[2023-04-08 11:35] VITALS: BP 123/72; PULSE 72; RESP 17; TEMP 98.8
== END 2023-04-08 11:45 | disposition home or self-care (01) ==
LOC: EC 08:27
DX: J18.9 Pneumonia, unspecified organism (principal); N39.0 Urinary tract infection, site not specified; M19.90 Unspecified osteoarthritis, unspecified site; E07.9 Disorder of thyroid, unspecified; Z87.891 Personal history of nicotine dependence; Z79.890 Hormone replacement therapy; Z79.1 Long term (current) use of non-steroidal anti-inflammatories (NSAID); Z88.6 Allergy status to analgesic agent; Z88.2 Allergy status to sulfonamides; Z88.1 Allergy status to other antibiotic agents; Z20.822 Contact with and (suspected) exposure to COVID-19
CPT/HCPCS: 36415; 93005; 80053; 84484; 85025; 81001; 87040; 87086; 87636; 71046; 99285; 96374; 96375; 96361 ×2; J2930; J0696; 87077; 87186

== ENCOUNTER 2023-11-13 08:28 | Inpatient (IN) | payer MEDICARE ==
--- NOTE | 2023-11-13 08:55 | ED ---
General Adult HPI - General Source: patient, RN notes reviewed Mode of arrival: ambulatory Limitations: no limitations <Amador Prince - Last Filed: 11/13/23 14:23> <Lis Cam - Last Filed: 11/15/23 07:54> - General Chief complaint: Upper Respiratory Infection Stated complaint: SOB,COUGH Time Seen by Provider: 11/13/23 08:32 - History of Present Illness Initial comments: 73-year-old female presents emergency department chief complaint of generalized weakness. Patient states she started not feeling well on like she may have a UTI. Patient states that she then progressed miguel URI symptoms, inc reasing weakness, decreased appetite and nausea. She denies any chest pain she does admit to some shortness of breath with cough. Patient is in no sick contacts. Denies any chest pain, flank pain, back pain patient reports possible fever does admit to chills. Patient states she has generalized weakness without focal weakness no significant headache, neck pain or neck stiffness. (Amador Prince) - Related Data Home Medications Medication Instructions Recorded Confirmed Levothyroxine Sodium [Synthroid] 50 mcg PO DAILY 02/23/18 11/13/23 Loratadine 10 mg PO DAILY 04/21/20 11/13/23 Meclizine [Antivert] 50 mg PO TID PRN 04/21/20 11/13/23 Cholecalciferol [Vitamin D3 (25 25 mcg PO DAILY 11/13/23 11/13/23 Mcg = 1000 Iu)] Escitalopram [Lexapro] 10 mg PO DAILY 11/13/23 11/13/23 Fluticasone Nasal [place] [Flonase 2 spray EA NOSTRIL HS PRN 11/13/23 11/13/23 Nasal [place]] Magnesium 250 mg PO DAILY 11/13/23 11/13/23 Multivit-Min/FA/Lycopen/Lutein 1 tab PO DAILY 11/13/23 11/13/23 [Centrum Silver Tablet] Allergies Allergy/AdvReac Type Severity Reaction Status Date / Time aspirin Allergy Dyspnea Verified 11/13/23 12:56 propoxyphene [From Darvon] Allergy Dyspnea Verified 11/13/23 12:56 Sulfa (Sulfonamide Allergy Vomiting Verified 11/13/23 12:56 Antibiotics) Review of Systems ROS Other: All systems not noted in ROS Statement are negative. <Amador Prince - Last Filed: 11/13/23 14:23> ROS Other: All systems not noted in ROS Statement are negative. <Lis Cam - Last Filed: 11/15/23 07:54> ROS Statement: Those systems with pertinent positive or pertinent negative responses have been documented in the HPI. Past Medical History Past Medical History: Osteoarthritis (OA), Pneumonia, Thyroid Disorder Additional Past Medical History / Comment(s): 2 "small aortic aneurysms", varicose veins, environmental allergies, History of Any Multi-Drug Resistant Organisms: None Reported Past Surgical History: Hysterectomy Additional Past Surgical History / Comment(s): hemorrhoidectomy, Past Anesthesia/Blood Transfusion Reactions: Motion Sickness Past Psychological History: No Psychological Hx Reported Smoking Status: Former smoker Past Alcohol Use History: Rare Past Drug Use History: None Reported - Past Family History Mother Family Medical History: Cancer Additional Family Medical History / Comment(s): family hx of cancer on mothers side. <Amador Prince - Last Filed: 11/13/23 14:23> General Exam Limitations: no limitations General appearance: alert, in no apparent distress Head exam: Present: atraumatic, normocephalic, normal inspection Eye exam: Present: normal appearance, PERRL, EOMI. Absent: scleral icterus, conjunctival injection, periorbital swelling ENT exam: Present: normal exam, normal oropharynx, mucous membranes moist Neck exam: Present: normal inspection, full ROM. Absent: tenderness, meningismus, lymphadenopathy Respiratory exam: Present: normal lung sounds bilaterally. Absent: respiratory distress, wheezes, rales, rhonchi, stridor Cardiovascular Exam: Present: regular rate, normal rhythm, normal heart sounds. Absent: systolic murmur, diastolic murmur, rubs, gallop, clicks GI/Abdominal exam: Present: soft, normal bowel sounds. Absent: distended, tenderness, guarding, rebound, rigid Neurological exam: Present: alert, oriented X3, CN II-XII intact <Amador Prince - Last Filed: 11/13/23 14:23> Course Vital Signs 11/13/23 11/13/23 11/13/23 08:29 08:37 08:43 Temperature 98.1 F Pulse Rate 94 Pulse Rate [ Remittance Clerk ] Pulse Rate [ 81 Left Radial] Pulse Rate [ 93 Left Sitting Radial] Respiratory 16 20 18 Rate Blood Pressure 82/53 Blood Pressure 91/56 [Left Arm Sitting] Blood Pressure 79/49 [Left Arm Standing] Blood Pressure 93/59 [Left Arm Supine] O2 Sat by Pulse 94 L 92 L Oximetry 11/13/23 11/13/23 11/13/23 10:56 13:56 15:49 Temperature Pulse Rate 74 69 71 Pulse Rate [ Remittance Clerk ] Pulse Rate [ Left Radial] Pulse Rate [ Left Sitting Radial] Respiratory 18 18 Rate Blood Pressure 108/68 112/64 Blood Pressure [Left Arm Sitting] Blood Pressure [Left Arm Standing] Blood Pressure [Left Arm Supine] O2 Sat by Pulse 94 L 96 100 Oximetry 11/13/23 11/13/23 11/13/23 15:59 17:45 20:00 Temperature 98 F 98.5 F Pulse Rate 83 87 Pulse Rate [ 93 Remittance Clerk ] Pulse Rate [ Left Radial] Pulse Rate [ Left Sitting Radial] Respiratory 18 18 Rate Blood Pressure 96/53 Blood Pressure 108/59 [Left Arm Sitting] Blood Pressure [Left Arm Standing] Blood Pressure [Left Arm Supine] O2 Sat by Pulse 92 L 94 L Oximetry 11/13/23 11/13/23 20:05 20:15 Temperature Pulse Rate 80 86 Pulse Rate [ Remittance Clerk ] Pulse Rate [ Left Radial] Pulse Rate [ Left Sitting Radial] Respiratory Rate Blood Pressure Blood Pressure [Left Arm Sitting] Blood Pressure [Left Arm Standing] Blood Pressure [Left Arm Supine] O2 Sat by Pulse Oximetry EKG Findings - EKG Comments: EKG Findings:: EKG performed at 9: 03 sinus rhythm rate of 80 SC 152 QRS 96 QT/QTc 378/414 noted Q wave in aVL/V2 - EKG Results: EKG: interpreted by ERMD <Amador Prince - Last Filed: 11/13/23 14:23> Medical Decision Making - Lab Data Result diagrams: 11/13/23 09:17 11/13/23 09:17 <Amador Prince - Last Filed: 11/13/23 14:23> - Lab Data Result diagrams: 11/13/23 09:17 11/13/23 09:17 <Lis Cam - Last Filed: 11/15/23 07:54> - Medical Decision Making Was pt. sent in by a medical professional or institution (Dr., PA, T[facility], urgent care, hospital, or halfway...) When possible be specific @ -No Did you speak to anyone other than the patient for history (EMS, parent, family, police, friend...)? What history was obtained from this source @ -No Did you review nursing and triage notes (agree or disagree)? Why? @ -I reviewed and agree with nursing and triage notes Were old charts reviewed (outside hosp., previous admission, EMS record, old EKG, old radiological studies, urgent care reports/EKG's, halfway records)? Report findings @ -No old charts were reviewed Differential Diagnosis (chest pain, altered mental status, abdominal pain women, abdominal pain men, vaginal bleeding, weakness, fever, dyspnea, syncope, headache, dizziness, GI bleed, back pain, seizure, CVA, palpatations, mental health, musculoskeletal)? @ -COVID 19, RSV, influenza, pneumonia, acute bronchitis, URI, this list is not all inclusive EKG interpreted by me (3pts min.). @ -As above X-rays interpreted by me (1pt min.). @ -Chest x-ray showing no acute cardiopulmonary process CT interpreted by me (1pt min.). @ -CT abdomen pelvis showing no intra-abdominal process, bilateral basilar infiltrates U/S interpreted by me (1pt. min.). @ -None done What testing was considered but not performed or refused? (CT, X-rays, U/S, labs)? Why? @ -None What meds were considered but not given or refused? Why? @ -None Did you discuss the management of the patient with other professionals (professionals i.e. LESTER Goncalves, [facility], lab, RT, psych nurse, social media marketing specialist, director of dementia operations, teacher, protective officer, human services case manager)? Give summary @ -Dr. Luis for admission Was smoking cessation discussed for >3mins.? @ -No Was critical care preformed (if so, how long)? @ -No Were there social determinants of health that impacted care today? How? (H omelessness, low income, unemployed, alcoholism, drug addiction, transportation, low edu. Level, literacy, decrease access to med. care, half-way, rehab)? @ -No Was there de-escalation of care discussed even if they declined (Discuss DNR or withdrawal of care, Hospice)? DNR status @ -No What co-morbidities impacted this encounter? (DM, HTN, Smoking, COPD, CAD, Cancer, CVA, ARF, Chemo, Hep., AIDS, mental health diagnosis, sleep apnea, morbid obesity)? @ -None Was patient admitted / discharged? Hospital course, mention meds given and route, prescriptions, significant lab abnormalities, going to OR and other pertinent info. @ -Admitted patient presented for hypertension, URI symptoms. Patient is found to have bilateral basal infiltrates started on Rocephin, azithromycin. Patient be admitted for further treatment and pulmonary evaluation. Undiagnosed new problem with uncertain prognosis? @ -No Drug Therapy requiring intensive monitoring for toxicity (Heparin, Nitro, Insulin, Cardizem)? @ -No Were any procedures done? @ -No Diagnosis/symptom? @ -Hypotension, pneumonia Acute, or Chronic, or Acute on Chronic? @ -Acute Uncomplicated (without systemic symptoms) or Complicated (systemic symptoms)? @ -complicated Side effects of treatment? @ -No Exacerbation, Progression, or Severe Exacerbation? @ -No Poses a threat to life or bodily function? How? (Chest pain, USA, ID, pneumonia, PE, COPD, DKA, ARF, appy, cholecystitis, CVA, Diverticulitis, Homicidal, Suicidal, threat to staff... and all critical care pts) @ -Yes pneumonia leading to the respiratory failure (Amador Prince) - Lab Data Lab Results 11/13/23 11/13/23 11/13/23 Range/Units 09:17 09:17 09:17 WBC 8.7 (3.8-10.6) k/uL RBC 4.10 (3.80-5.40) m/uL Hgb 12.0 (11.4-16.0) gm/dL Hct 36.6 (34.0-46.0) % MCV 89.3 (80.0-100.0) fL MCH 29.4 (25.0-35.0) pg MCHC 32.9 (31.0-37.0) g/dL RDW 12.6 (11.5-15.5) % Plt Count 289 (150-450) k/uL MPV 7.1 Neutrophils % 82 % Lymphocytes % 6 % Monocytes % 3 % Eosinophils % 8 % Basophils % 0 % Neutrophils # 7.2 (1.3-7.7) k/uL Lymphocytes # 0.5 L (1.0-4.8) k/uL Monocytes # 0.3 (0-1.0) k/uL Eosinophils # 0.7 (0-0.7) k/uL Basophils # 0.0 (0-0.2) k/uL Sodium 138 (137-145) mmol/L Potassium 3.7 (3.5-5.1) mmol/L Chloride 108 H (98-107) mmol/L Carbon Dioxide 25 (22-30) mmol/L Anion Gap 5 mmol/L BUN 15 (7-17) mg/dL Creatinine 0.95 (0.52-1.04) mg/dL Est GFR (CKD-EPI)AfAm 69 (>60 ml/min/1.73 sqM) Est GFR (CKD-EPI)NonAf 60 (>60 ml/min/1.73 sqM) Glucose 159 H (74-99) mg/dL Plasma Lactic Acid Mukesh 1.8 (0.7-2.0) mmol/L Calcium 8.8 (8.4-10.2) mg/dL Magnesium 2.2 (1.6-2.3) mg/dL Total Bilirubin 0.6 (0.2-1.3) mg/dL AST 115 H (14-36) U/L ALT 141 H (4-34) U/L Alkaline Phosphatase 129 H (38-126) U/L Troponin I (0.000-0.034) ng/mL Total Protein 5.3 L (6.3-8.2) g/dL Albumin 2.9 L (3.5-5.0) g/dL Urine Color Urine Appearance (Clear) Urine pH (5.0-8.0) Ur Specific [place] (1.001-1.035) Urine Protein (Negative) Urine Glucose (UA) (Negative) Urine Ketones (Negative) Urine Blood (Negative) Urine Nitrite (Negative) Urine Bilirubin (Negative) Urine Urobilinogen (<2.0) mg/dL Ur Leukocyte Esterase (Negative) Urine WBC (0-5) /hpf Ur Squamous Epith Cells (0-4) /hpf Urine Mucus (None) /hpf Influenza Type A (PCR) (Not Detectd) Influenza Type B (PCR) (Not Detectd) Urine Legionella Ag (Negative) RSV (PCR) (Not Detectd) SARS-CoV-2 (PCR) (Not Detectd) 11/13/23 11/13/23 11/13/23 Range/Units 09:17 09:17 11:05 WBC (3.8-10.6) k/uL RBC (3.80-5.40) m/uL Hgb (11.4-16.0) gm/dL Hct (34.0-46.0) % MCV (80.0-100.0) fL MCH (25.0-35.0) pg MCHC (31.0-37.0) g/dL RDW (11.5-15.5) % Plt Count (150-450) k/uL MPV Neutrophils % % Lymphocytes % % Monocytes % % Eosinophils % % Basophils % % Neutrophils # (1.3-7.7) k/uL Lymphocytes # (1.0-4.8) k/uL Monocytes # (0-1.0) k/uL Eosinophils # (0-0.7) k/uL Basophils # (0-0.2) k/uL Sodium (137-145) mmol/L Potassium (3.5-5.1) mmol/L Chloride (98-107) mmol/L Carbon Dioxide (22-30) mmol/L Anion Gap mmol/L BUN (7-17) mg/dL Creatinine (0.52-1.04) mg/dL Est GFR (CKD-EPI)AfAm (>60 ml/min/1.73 sqM) Est GFR (CKD-EPI)NonAf (>60 ml/min/1.73 sqM) Glucose (74-99) mg/dL Plasma Lactic Acid Mukesh (0.7-2.0) mmol/L Calcium (8.4-10.2) mg/dL Magnesium (1.6-2.3) mg/dL Total Bilirubin (0.2-1.3) mg/dL AST (14-36) U/L ALT (4-34) U/L Alkaline Phosphatase (38-126) U/L Troponin I 0.032 (0.000-0.034) ng/mL Total Protein (6.3-8.2) g/dL Albumin (3.5-5.0) g/dL Urine Color Yellow Urine Appearance Clear (Clear) Urine pH 5.5 (5.0-8.0) Ur Specific [place] 1.044 H (1.001-1.035) Urine Protein Trace H (Negative) Urine Glucose (UA) Negative (Negative) Urine Ketones Negative (Negative) Urine Blood Negative (Negative) Urine Nitrite Negative (Negative) Urine Bilirubin Negative (Negative) Urine Urobilinogen <2.0 (<2.0) mg/dL Ur Leukocyte Esterase Moderate H (Negative) Urine WBC 2 (0-5) /hpf Ur Squamous Epith Cells 1 (0-4) /hpf Urine Mucus Occasional H (None) /hpf Influenza Type A (PCR) Not Detected (Not Detectd) Influenza Type B (PCR) Not Detected (Not Detectd) Urine Legionella Ag (Negative) RSV (PCR) Not Detected (Not Detectd) SARS-CoV-2 (PCR) Not Detected (Not Detectd) 11/13/23 Range/Units 11:30 WBC (3.8-10.6) k/uL RBC (3.80-5.40) m/uL Hgb (11.4-16.0) gm/dL Hct (34.0-46.0) % MCV (80.0-100.0) fL MCH (25.0-35.0) pg MCHC (31.0-37.0) g/dL RDW (11.5-15.5) % Plt Count (150-450) k/uL MPV Neutrophils % % Lymphocytes % % Monocytes % % Eosinophils % % Basophils % % Neutrophils # (1.3-7.7) k/uL Lymphocytes # (1.0-4.8) k/uL Monocytes # (0-1.0) k/uL Eosinophils # (0-0.7) k/uL Basophils # (0-0.2) k/uL Sodium (137-145) mmol/L Potassium (3.5-5.1) mmol/L Chloride (98-107) mmol/L Carbon Dioxide (22-30) mmol/L Anion Gap mmol/L BUN (7-17) mg/dL Creatinine (0.52-1.04) mg/dL Est GFR (CKD-EPI)AfAm (>60 ml/min/1.73 sqM) Est GFR (CKD-EPI)NonAf (>60 ml/min/1.73 sqM) Glucose (74-99) mg/dL Plasma Lactic Acid Mukesh (0.7-2.0) mmol/L Calcium (8.4-10.2) mg/dL Magnesium (1.6-2.3) mg/dL Total Bilirubin (0.2-1.3) mg/dL AST (14-36) U/L ALT (4-34) U/L Alkaline Phosphatase (38-126) U/L Troponin I (0.000-0.034) ng/mL Total Protein (6.3-8.2) g/dL Albumin (3.5-5.0) g/dL Urine Color Urine Appearance (Clear) Urine pH (5.0-8.0) Ur Specific [place] (1.001-1.035) Urine Protein (Negative) Urine Glucose (UA) (Negative) Urine Ketones (Negative) Urine Blood (Negative) Urine Nitrite (Negative) Urine Bilirubin (Negative) Urine Urobilinogen (<2.0) mg/dL Ur Leukocyte Esterase (Negative) Urine WBC (0-5) /hpf Ur Squamous Epith Cells (0-4) /hpf Urine Mucus (None) /hpf Influenza Type A (PCR) (Not Detectd) Influenza Type B (PCR) (Not Detectd) Urine Legionella Ag Negative (Negative) RSV (PCR) (Not Detectd) SARS-CoV-2 (PCR) (Not Detectd) Disposition Time of Disposition: 12:23 <Amador Prince - Last Filed: 11/13/23 14:23> <Lis Cam - Last Filed: 11/15/23 07:54> Clinical Impression: Bilateral pneumonia, Hypotension Disposition: ADMITTED IP TO THIS HOSP Condition: Fair
[2023-11-13] MEDS: SODIUM CHLORIDE 0.9% 1,000 ML IV ONE (09:19)
--- NOTE | 2023-11-13 09:32 | XR ---
EXAMINATION TYPE: XR chest 2V DATE OF EXAM: 11/13/2023 COMPARISON: 04/08/2023 HISTORY: Shortness of breath TECHNIQUE: Frontal and lateral views of the chest are obtained. FINDINGS: Scattered senescent parenchymal changes noted. Hyperinflation compatible with COPD. No evidence for infiltrate. Left basilar linear atelectasis or parenchymal scar is unchanged. Heart size is stable. Mediastinal structures are stable and grossly unremarkable. No evidence for hilar prominence. Degenerative changes dorsal spine. IMPRESSION: 1. No evidence for acute pulmonary disease. [facility], , 11/13/2023 9:29 AM
[2023-11-13 09:34] LABS: ALT 141 U/L (4-34); AST 115 U/L (14-36); African American GFR (CKD) 69 (>60 ml/min/1.73 sqM); Albumin 2.9 g/dL (3.5-5.0); Alkaline Phosphatase 129 U/L (38-126); Anion Gap 5 mmol/L; Blood Urea Nitrogen 15 mg/dL (7-17); Calcium 8.8 mg/dL (8.4-10.2); Carbon Dioxide 25 mmol/L (22-30); Chloride 108 mmol/L (98-107); Glucose 159 mg/dL (74-99); Magnesium 2.2 mg/dL (1.6-2.3); Non-African American GFR(CKD) 60 (>60 ml/min/1.73 sqM); Potassium 3.7 mmol/L (3.5-5.1); Sodium 138 mmol/L (137-145); Total Bilirubin 0.6 mg/dL (0.2-1.3); Total Protein 5.3 g/dL (6.3-8.2)
[2023-11-13 09:41] LABS: Basophils % (A) 0 %; Eosinophils # (A) 0.7 k/uL (0-0.7); Eosinophils % (A) 8 %; HCT 36.6 % (34.0-46.0); Lymphocytes # (A) 0.5 k/uL (1.0-4.8); Lymphocytes % (A) 6 %; MCH 29.4 pg (25.0-35.0); MCHC 32.9 g/dL (31.0-37.0); MCV 89.3 fL (80.0-100.0); Mean Platelet Volume 7.1; Monocytes # (A) 0.3 k/uL (0-1.0); Monocytes % (A) 3 %; Neutrophils # (A) 7.2 k/uL (1.3-7.7); Neutrophils % (A) 82 %; Platelet Count 289 k/uL (150-450); RDW 12.6 % (11.5-15.5); WBC 8.7 k/uL (3.8-10.6)
--- NOTE | 2023-11-13 10:45 | CT ---
EXAMINATION TYPE: CT abdomen pelvis w con CT DLP: 722.3 mGycm, Automated exposure control for dose reduction was used. DATE OF EXAM: 11/13/2023 10:36 AM COMPARISON: None CLINICAL INDICATION:Female, 73 years old with history of pain, weakness; pain, weakness. URI and GI i ssues. TECHNIQUE: Standard CT of the abdomen and pelvis following the administration of 80 cc of Isovue 30 0 IV contrast material. Coronal and sagittal reformats were performed. FINDINGS: LOWER CHEST: Trace bilateral pleural effusions with bilateral lower lobe patchy groundglass and conso lidative opacities. Mildly prominent heart. ABDOMEN LIVER: Unremarkable GALLBLADDER AND BILE DUCTS: Unremarkable. PANCREAS: Unremarkable. SPLEEN: Unremarkable. ADRENAL GLANDS: Unremarkable. KIDNEYS AND URETERS: No evidence of hydronephrosis or renal calculus. The kidneys enhance symmetrical ly. Contrast is demonstrated within both collecting systems on the delayed phase. PELVIS BLADDER: Unremarkable REPRODUCTIVE: The uterus is surgically absent. ABDOMEN & PELVIS STOMACH AND BOWEL: Tiny hiatal hernia, duodenum is unremarkable. No focal bowel wall thickening and s tranding inflammatory changes. The appendix is not identified however no significant inflammatory carol nges within the right lower quadrant. No evidence of bowel obstruction. PERITONEUM: No evidence of pneumoperitoneum or free fluid. VASCULATURE: No evidence of aortic aneurysm. Pelvic phleboliths. MUSCULOSKELETAL: No acute osseous abnormalities. Mild multilevel degenerative disc disease. Thoracic multilevel anterior osteophytosis. LYMPH NODES: No evidence for lymphadenopathy. SOFT TISSUE/ABDOMINAL WALL: Unremarkable IMPRESSION: 1. No acute intra-abdominal/pelvic process. 2. Trace bilateral pleural effusions with bilateral lower lobe patchy groundglass and consolidative o pacities concerning for pneumonia versus atelectasis. [facility], , 11/13/2023 10:43 AM
[2023-11-13 11:20] LABS: Appearance,Urine Clear (Clear); Bilirubin,Urine Negative (Negative); Blood,Urine Negative (Negative); Color,Urine Yellow; Glucose,Urine (UA) Negative (Negative); Ketones,Urine Negative (Negative); Leukocyte Esterase,Urine Moderate (Negative); Mucus,Urine Occasional /hpf; Nitrite,Urine Negative (Negative); PH, Urine 5.5 (5.0-8.0); Protein,Urine Trace (Negative); Specific Gravity,Urine 1.044 (1.001-1.035); Squamous Epithelial Cell,Urine 1 /hpf (0-4); Urobilinogen,Urine <2.0 mg/dL (<2.0); WBC,Urine 2 /hpf (0-5)
[2023-11-13] MEDS ORDERED: IPRATROPIUM-ALBUTEROL 3 ML NEB INHALATION PRN (12:19)
[2023-11-13] MEDS ORDERED: PNEUMONIA PROTOCOL UTILIZED 1 EACH MISC PO PRN (12:19)
[2023-11-13] MEDS: AZITHROMYCIN 500 MG in SODIUM CHLORIDE 0.9% 250 ML IVPB STA (13:49)
[2023-11-13] MEDS: IPRATROPIUM-ALBUTEROL 3 ML NEB INHALATION SCH (15:49)
--- NOTE | 2023-11-13 16:46 | P.CNPUL ---
History of Present Illness Consult date: 11/13/23 Requesting physician: Gavin Luis Reason for consult: dyspnea, abnormal CXR/CT Chief complaint: Shortness of breath, cough, congestion History of present illness: This is a pleasant 73-year-old female patient with a known history of hypothyroidism, depression who had presented to the emergency room earlier this morning with a 4-day history of increasing shortness of breath cough congestion and weakness. This x-ray revealed no acute pulmonary process. EKG revealed sinus rhythm without acute ST or T wave abnormalities. CT scan of the abdomen and pelvis revealed no acute intra-abdominal/pelvic process. There is trace bilateral pleural effusions with lower lobe patchy groundglass opacities. White count 8.7. Hemoglobin 12.0. Sodium 138. Potassium 3.7. Bicarb 25. BUN 15. Creatinine 0.95. Glucose 159. Viral screen is negative. She is seen today in the emergency room in consultation. She is awake and alert in no acute distress. She does remain quite weak. She has a dry nonproductive cough. No fever or chills. She is afebrile. She is maintaining good O2 saturation in the 90s on room air. Review of Systems REVIEW OF SYSTEMS: CONSTITUTIONAL: Positive for generalized weakness. Denies any recent significant weight loss or weight gain. EYES: Denies change in vision. EARS, NOSE, MOUTH, THROAT: Denies headaches, denies sore throat. CARDIOVASCULAR: Denies chest pain, palpitations or syncopal episodes. RESPIRATORY: Positive for shortness of breath, cough, congestion no hemoptysis. GASTROINTESTINAL: Denies change in appetite, denies abdominal pain GENITOURINARY: Denies hematuria, denies infections. MUSKULOSKELETAL: Denies pain, denies swelling. INTEGUMENTARY: Denies rash, denies eczema. NEUROLOGICAL: Denies recent memory loss, no recent seizure activity. PSYCHIATRIC: Denies anxiety, denies depression. HEMATOLOGIC/LYMPHATIC: Denies anemia, denies enlarged lymph nodes. Past Medical History Past Medical History: Osteoarthritis (OA), Pneumonia, Thyroid Disorder Additional Past Medical History / Comment(s): 2 "small aortic aneurysms", varicose veins, environmental allergies, History of Any Multi-Drug Resistant Organisms: None Reported Past Surgical History: Hysterectomy Additional Past Surgical History / Comment(s): hemorrhoidectomy, Past Anesthesia/Blood Transfusion Reactions: Motion Sickness Past Psychological History: No Psychological Hx Reported Smoking Status: Former smoker Past Alcohol Use History: Rare Past Drug Use History: None Reported - Past Family History Mother Family Medical History: Cancer Additional Family Medical History / Comment(s): family hx of cancer on mothers side. Medications and Allergies Home Medications Medication Instructions Recorded Confirmed Type Levothyroxine Sodium [Synthroid] 50 mcg PO DAILY 02/23/18 11/13/23 History Loratadine 10 mg PO DAILY 04/21/20 11/13/23 History Meclizine [Antivert] 50 mg PO TID PRN 04/21/20 11/13/23 History Cholecalciferol [Vitamin D3 (25 25 mcg PO DAILY 11/13/23 11/13/23 History Mcg = 1000 Iu)] Escitalopram [Lexapro] 10 mg PO DAILY 11/13/23 11/13/23 History Fluticasone Nasal [place] [Flonase 2 spray EA NOSTRIL HS PRN 11/13/23 11/13/23 History Nasal Valentine] Magnesium 250 mg PO DAILY 11/13/23 11/13/23 History Multivit-Min/FA/Lycopen/Lutein 1 tab PO DAILY 11/13/23 11/13/23 History [Centrum Silver Tablet] Allergies Allergy/AdvReac Type Severity Reaction Status Date / Time aspirin Allergy Dyspnea Verified 11/13/23 12:56 propoxyphene [From Darvon] Allergy Dyspnea Verified 11/13/23 12:56 Sulfa (Sulfonamide Allergy Vomiting Verified 11/13/23 12:56 Antibiotics) Physical Exam Vitals: Vital Signs Temp Pulse Pulse Pulse Resp BP BP 11/13/23 15:59 83 11/13/23 15:49 71 11/13/23 13:56 69 18 112/64 11/13/23 10:56 74 18 108/68 11/13/23 08:43 81 93 18 91/56 11/13/23 08:37 20 11/13/23 08:29 98.1 F 94 16 82/53 BP BP Pulse Ox 11/13/23 15:59 11/13/23 15:49 100 11/13/23 13:56 96 11/13/23 10:56 94 L 11/13/23 08:43 79/49 93/59 92 L 11/13/23 08:37 09/30/24 08:29 94 L Intake and Output 11/13/23 11/13/23 11/13/23 06:59 14:59 22:59 Other: Weight 63.503 kg GENERAL EXAM: Alert, pleasant 73-year-old female, on room air, fairly comfortable in no apparent distress. HEAD: Normocephalic. EYES: Normal reaction of pupils, equal size. NOSE: Clear with pink turbinates. THROAT: No erythema or exudates. NECK: No masses, no JVD. CHEST: No chest wall deformity. LUNGS: Equal air entry with few scattered rhonchi. CVS: S1 and S2 normal with no audible murmur, regular rhythm. ABDOMEN: No hepatosplenomegaly, normal bowel sounds, no guarding or rigidity. SPINE: No scoliosis or deformity SKIN: No rashes CENTRAL NERVOUS SYSTEM: No focal deficits, tone is normal in all 4 extremities. EXTREMITIES: There is no peripheral edema. No clubbing, no cyanosis. Peripheral pulses are intact. Results - Laboratory Findings CBC and BMP: 11/13/23 09:17 11/13/23 09:17 Abnormal lab findings: Abnormal Labs 11/13/23 11/13/23 11/13/23 09:17 09:17 11:05 Lymphocytes # 0.5 L Chloride 108 H Glucose 159 H AST 115 H ALT 141 H Alkaline Phosphatase 129 H Total Protein 5.3 L Albumin 2.9 L Ur Specific [place] 1.044 H Urine Protein Trace H Ur Leukocyte Esterase Moderate H Urine Mucus Occasional H - Diagnostic Findings Chest x-ray: image reviewed Assessment and Plan Assessment: Dyspnea with cough and congestion with possible early pneumonia versus atelectasis of the bilateral bases Transaminitis of unclear etiology Hypothyroidism no History of depression Plan: The patient was seen and evaluated Imaging, labs and medications reviewed Continue ceftriaxone and azithromycin for now Check a procalcitonin Continue DuoNeb and elations Follow-up chest x-ray in a.m. We will continue to follow and make further recommendations based on her clinical status I have personally seen and examined the patient, performed the documentation and the assessment and plan as written. Number of minutes spent on the visit: 20.
--- NOTE | 2023-11-14 07:54 | XR ---
EXAMINATION TYPE: XR chest 1V portable DATE OF EXAM: 11/14/2023 COMPARISON: 11/13/2023 HISTORY: Shortness of breath TECHNIQUE: Frontal and lateral views of the chest are obtained. FINDINGS: Scattered senescent parenchymal changes noted. Hyperinflation compatible with COPD. Scattered vague reticulonodular infiltrates. Correlate for pneumonia. No evidence for atelectasis. Heart size is stable. Mediastinal structures are stable and grossly unremarkable. No evidence for hilar prominence. Degenerative changes dorsal spine. IMPRESSION: 1. Scattered vague reticulonodular infiltrates. Correlate for pneumonia. [facility], , 11/14/2023 7:52 AM
--- NOTE | 2023-11-14 13:25 | P.PN ---
Subjective Progress Note Date: 11/14/23 Principal diagnosis: Acute tracheobronchitis, basilar atelectasis, possible pneumonia This is a pleasant 73-year-old female patient with a known history of hypothyroidism, depression who had presented to the emergency room earlier this morning with a 4-day history of increasing shortness of breath cough congestion and weakness. This x-ray revealed no acute pulmonary process. EKG revealed sinus rhythm without acute ST or T wave abnormalities. CT scan of the abdomen and pelvis revealed no acute intra-abdominal/pelvic process. There is trace bilateral pleural effusions with lower lobe patchy groundglass opacities. White count 8.7. Hemoglobin 12.0. Sodium 138. Potassium 3.7. Bicarb 25. BUN 15. Creatinine 0.95. Glucose 159. Viral screen is negative. She is seen today in the emergency room in consultation. She is awake and alert in no acute distress. She does remain quite weak. She has a dry nonproductive cough. No fever or chills. She is afebrile. She is maintaining good O2 saturation in the 90s on room air. Patient was seen today on 11/14/2023, feeling better, breathing easier, on room air, not in any distress. Chest x-ray today showed improvement in her bibasilar atelectasis specially the right base, minimal atelectasis persist at the left base, underlying pneumonia is felt to be less likely considering procalcitonin level is normal hence could consider the patient for discharge planning. And suggest oral antibiotics for 1 week Objective - Vital Signs Vital signs: Vital Signs Temp 98.3 F 11/14/23 08:00 Pulse 80 11/14/23 08:44 Resp 17 11/14/23 08:00 BP 118/65 11/14/23 08:00 Pulse Ox 95 11/14/23 08:00 FiO2 Intake & Output 11/13/23 11/14/23 11/14/23 18:59 06:59 18:59 Weight 63.503 kg 63.503 kg Other: Voiding Method Toilet - Exam GENERAL EXAM: Alert, pleasant 73-year-old female, on room air, not in any distress HEAD: Normocephalic. EYES: Normal reaction of pupils, equal size. NOSE: Clear with pink turbinates. THROAT: No erythema or exudates. NECK: No masses, no JVD. CHEST: No chest wall deformity. LUNGS: Equal air entry with few scattered rhonchi. CVS: S1 and S2 normal with no audible murmur, regular rhythm. ABDOMEN: No hepatosplenomegaly, normal bowel sounds, no guarding or rigidity. SPINE: No scoliosis or deformity SKIN: No rashes CENTRAL NERVOUS SYSTEM: No focal deficits, tone is normal in all 4 extremities. EXTREMITIES: There is no peripheral edema. No clubbing, no cyanosis. Peripheral pulses are intact. - Labs CBC & Chem 7: 11/13/23 09:17 11/13/23 09:17 Assessment and Plan Assessment: Impression: Acute tracheobronchitis with bibasilar atelectasis, possible community-acquired pneumonia Dyspnea with cough secondary to above, resolved Transaminitis of unclear etiology Hypothyroidism History of depression Recommendation: Considering her relatively normal procalcitonin level Considering the patient is feeling better and breathing a lot easier Considering improvement noted in her bibasilar atelectasis noted on the chest x- ray today, Consider discharging the patient home on oral antibiotics and follow-up on outpatient basis. Time with Patient: Less than 30
[2023-11-14] MEDS: AZITHROMYCIN 500 MG in SODIUM CHLORIDE 0.9% 250 ML IVPB SCH (15:11)
--- NOTE | 2023-11-14 16:30 | P.HPIM ---
History of Present Illness H&P Date: 11/14/23 Chief Complaint: Worsening shortness of breath, cough This is a 73-year-old female with past medical history significant for pneumonia, osteoarthritis, hypothyroidism, former nicotine dependence, environmental allergies and multiple other medical issues presented to the ER wi th complaints of ongoing shortness of breath and nonproductive cough worsening over the last 4 days, accompanied by nausea, decreased appetite and subsequent increased weakness. Afebrile, normal WBC , normal procalcitonin, 0.36. Hematology panel unremarkable. Renal function stable.mildly elevated LFTs. viral screening negative. UA reported moderate leukocyte esterases, negative nitrates. Nauseated, denies abdominal pain. chest x-ray reported no evidence for acute pulmonary disease, hyperinflation compatible with COPD, no evidence for infiltrate, left basilar linear atelectasis or parenchymal scar unchanged. Abdomen /pelvis CT reported no acute intra-abdominal pelvic process, trace bilateral pleural effusions with bilateral lower lobe patchy groundglass and consolidative opacities concerning for pneumonia versus atelectasis. Repeat chest x-ray this morning pending. Denies chest pain, palpitations or increase shortness of breath. Maintaining O2 sats in the 90s on room air. Review of Systems ROS Statement: Those systems with pertinent positive or pertinent negative responses have been documented in the HPI. ROS Other: All systems not noted in ROS Statement are negative. Past Medical History Past Medical History: Osteoarthritis (OA), Pneumonia, Thyroid Disorder Additional Past Medical History / Comment(s): 2 "small aortic aneurysms", varicose veins, environmental allergies, History of Any Multi-Drug Resistant Organisms: None Reported Past Surgical History: Hysterectomy Additional Past Surgical History / Comment(s): hemorrhoidectomy, Past Anesthesia/Blood Transfusion Reactions: Motion Sickness Past Psychological History: No Psychological Hx Reported Smoking Status: Former smoker Past Alcohol Use History: Rare Additional Past Alcohol Use History / Comment(s): quit smoking 50 yrs ago, smoked for 1 yr Past Drug Use History: None Reported - Past Family History Mother Family Medical History: Cancer Additional Family Medical History / Comment(s): family hx of cancer on mothers side. Medications and Allergies Home Medications Medication Instructions Recorded Confirmed Type Levothyroxine Sodium [Synthroid] 50 mcg PO DAILY 02/23/18 11/13/23 History Loratadine 10 mg PO DAILY 04/21/20 11/13/23 History Meclizine [Antivert] 50 mg PO TID PRN 04/21/20 11/13/23 History Cholecalciferol [Vitamin D3 (25 25 mcg PO DAILY 11/13/23 11/13/23 History Mcg = 1000 Iu)] Escitalopram [Lexapro] 10 mg PO DAILY 11/13/23 11/13/23 History Fluticasone Nasal [place] [Flonase 2 spray EA NOSTRIL HS PRN 11/13/23 11/13/23 History Nasal [place]] Magnesium 250 mg PO DAILY 11/13/23 11/13/23 History Multivit-Min/FA/Lycopen/Lutein 1 tab PO DAILY 11/13/23 11/13/23 History [Centrum Silver Tablet] Allergies Allergy/AdvReac Type Severity Reaction Status Date / Time aspirin Allergy Dyspnea Verified 11/13/23 12:56 propoxyphene [From [place]] Allergy Dyspnea Verified 11/13/23 12:56 Sulfa (Sulfonamide Allergy Vomiting Verified 11/13/23 12:56 Antibiotics) Physical Exam Vitals: Vital Signs Temp Pulse Pulse Resp BP BP BP 11/14/23 08:44 80 11/14/23 08:00 98.3 F 77 17 118/65 11/14/23 02:00 98.4 F 68 16 11/13/23 20:15 86 11/13/23 20:05 80 11/13/23 20:00 98.5 F 93 18 108/59 11/13/23 17:45 98 F 87 18 96/53 11/13/23 15:59 83 11/13/23 15:49 71 11/13/23 13:56 69 18 112/64 BP Pulse Ox 11/14/23 08:44 11/14/23 08:00 95 11/14/23 02:00 102/55 94 L 11/13/23 20:15 11/13/23 20:05 11/13/23 20:00 94 L 11/13/23 17:45 92 L 11/13/23 15:59 11/13/23 15:49 100 11/13/23 13:56 96 Intake and Output 11/13/23 11/14/23 11/14/23 22:59 06:59 14:59 Other: Voiding Method Toilet Weight 63.503 kg PHYSICAL EXAM: VITAL SIGNS: [Reviewed] GENERAL: Pleasant, alert and oriented x 3, sitting up in bed, no acute distress HEENT: Atraumatic, normocephalic conjunctivae normal. eyes normal. NECK: Supple, no JVD. No thyroid enlargement. No LNs CARDIOVASCULAR: S1, S2 regular. No murmur RESPIRATION: Unlabored, equal air entry, congested cough, scattered rhonchi, bilateral bases diminished. ABDOMEN: Soft, nondistended, nontender . No guarding. no masses palpable. No ascites, No hepatosplenomegaly.Bowel sounds heard. LEGS: No edema. no swelling PSYCHIATRY: Alert and oriented X3, mood and affect normal. NERVOUS SYSTEM: Cranial N 2-12 grossly normal. No focal deficits. Strength and sensation grossly intact.. Skin: Warm and dry, no rash noted. Results CBC & Chem 7: 11/13/23 09:17 11/13/23 09:17 Thrombosis Risk Factor Assmnt - Choose All That Apply Other Risk Factors: Yes Each Risk Factor Represents 2 Points: Age 61-74 years Thrombosis Risk Factor Assessment Total Risk Factor Score: 2 Thrombosis Risk Factor Assessment Level: Low Risk Assessment and Plan Assessment: Bibasilar atelectasis, with acute tracheobronchitis .less likely community-acqu ired pneumonia, normal procalcitonin level, chest x-ray pending Transaminitis, etiology unclear History of pneumonia Hypothyroidism Osteoarthritis Former nicotine dependence Plan: Continue on current medication resume ,monitoring and symptomatic treatment. Aggressive pulmonary toileting, maintain IV antibiotics, nebulized bronchodilators. discharge planning in progress pending chest x-ray, final DC recommendations and clearance per pulmonary. The impression and plan of care has been dictated as directed. : I performed a history and examination of this patient, discussed the same with the dictator. I agree with the dictator's note ,documented as a scribe. Any additional findings or plans will be noted.
[2023-11-15 08:36] VITALS: BP 117/75; RESP 17; TEMP 98.3
[2023-11-15 09:20] VITALS: PULSE 84
--- NOTE | 2023-11-15 10:19 | CDI ---
Documentation Clarification Form Date: 11/15/2023 From: Lien Freed RN CCDS Phone: [phone] Admit Date: 11/13/2023 12:33:00 PM Patient Name: Alexa Valencia Visit Number: [id number] Discharge Date: ATTENTION: The Clinical Documentation Specialists (CDI) and [facility] Coding Staff appreciate your assistance in clarifying documentation. Please respond to the clarification below the line at the bottom and electronically sign. The CDI & [facility] Coding staff will review the response and follow-up if needed. Please note: Queries are made part of the Legal Health Record. If you have any questions, please contact the author of this message via ITS. Doctor/Provider: VICKIE Carrizales: There is documentation of possible pneumonia in the Pulmonology progress note 11/13. Additional clarification is requested. History/Risk Factors: 73-year-old female with a history of pneumonia who presents with ongoing SOB, nausea, decreased appetite and increased weakness Clinical Indicators: 11/12 Triage VS: 82/53, 98.1, 94, 16, 94% room air 11/13 Pulmonology PN, Assessment: "Acute tracheobronchitis with bibasilar atelectasis, possible community-acquired pneumonia." 11/13 H&P, Assessment: "Bibasilar atelectasis, with acute tracheobronchitis. Less likely community- acquired pneumonia, normal procalcitonin level, chest x-ray pending" 11/12 WBC: 8.7 Procalcitonin: 0.36 Lactic Acid: 1.8 11/12 Chest X Ray, Impression: "1. No evidence for acute pulmonary disease." 11/13 Chest X Ray, Impression: "1. Scattered vague reticulonodular infiltrates. Correlate for pneumonia." Treatment: 11/12 Normal Saline IV 1000cc bolus once 11/12 Azithromycin 500mg IV once 11/12 then Q24 hours start 11/13 Ceftriaxone 2gram IV once 11/12 then [id number] start 11/13 Can you please clarify the diagnosis of pneumonia? [ ] Pneumonia ruled in [ ] Pneumonia ruled out [ ] Other, please specify unable to determine as per pulmonary__ [ x ] Unable to determine MTDD
--- NOTE | 2023-11-15 12:52 | P.PN ---
Subjective Progress Note Date: 11/15/23 This is a pleasant 73-year-old female patient with a known history of hypothyroidism, depression who had presented to the emergency room earlier this morning with a 4-day history of increasing shortness of breath cough congestion and weakness. This x-ray revealed no acute pulmonary process. EKG revealed sinus rhythm without acute ST or T wave abnormalities. CT scan of the abdomen and pelvis revealed no acute intra-abdominal/pelvic process. There is trace bilateral pleural effusions with lower lobe patchy groundglass opacities. White count 8.7. Hemoglobin 12.0. Sodium 138. Potassium 3.7. Bicarb 25. BUN 15. Creatinine 0.95. Glucose 159. Viral screen is negative. She is seen today in the emergency room in consultation. She is awake and alert in no acute distress. She does remain quite weak. She has a dry nonproductive cough. No fever or chills. She is afebrile. She is maintaining good O2 saturation in the 90s on room air. Patient was seen today on 11/14/2023, feeling better, breathing easier, on room air, not in any distress. Chest x-ray today showed improvement in her bibasilar atelectasis specially the right base, minimal atelectasis persist at the left base, underlying pneumonia is felt to be less likely considering procalcitonin level is normal hence could consider the patient for discharge planning. And suggest oral antibiotics for 1 week The patient is seen today November 15, 2023 in follow-up in the observation unit. She is currently sitting up in bed. Awake and alert in no acute distress. Maintaining good O2 saturations in the 90s on room air. Feeling back to her baseline. No worsening shortness of breath, cough or congestion. Procalcitonin was negative at 0.36. Chest x-ray with mainly atelectasis of the right lung base. She remained on ceftriaxone and azithromycin. Objective - Vital Signs Vital signs: Vital Signs Temp 98.3 F 11/15/23 08:00 Pulse 84 11/15/23 09:15 Resp 17 11/15/23 08:00 BP 117/75 11/15/23 08:00 Pulse Ox 93 L 11/15/23 08:00 FiO2 Intake & Output 11/14/23 11/15/23 11/15/23 18:59 06:59 18:59 Other: # Voids 3 3 - Exam GENERAL EXAM: Alert, active, pleasant 73-year-old female, on room air, comfortable in no apparent distress. HEAD: Normocephalic. EYES: Normal reaction of pupils, equal size. NOSE: Clear with pink turbinates. THROAT: No erythema or exudates. NECK: No masses, no JVD. CHEST: No chest wall deformity. LUNGS: Equal air entry with no crackles, wheeze, rhonchi or dullness. CVS: S1 and S2 normal with no audible murmur, regular rhythm. ABDOMEN: No hepatosplenomegaly, normal bowel sounds, no guarding or rigidity. SPINE: No scoliosis or deformity SKIN: No rashes CENTRAL NERVOUS SYSTEM: No focal deficits, tone is normal in all 4 extremities. EXTREMITIES: There is no peripheral edema. No clubbing, no cyanosis. Peripheral pulses are intact. - Labs CBC & Chem 7: 11/13/23 09:17 11/13/23 09:17 Labs: Microbiology - Last 24 Hours (Table) 11/13/23 12:40 Blood Culture - Preliminary Blood Assessment and Plan Assessment: Acute tracheobronchitis with possible early pneumonia versus atelectasis of the bilateral bases. Procalcitonin negative Transaminitis of unclear etiology Hypothyroidism History of depression Plan: The patient was seen and evaluated Medications reviewed Stable and on room air Complete of course of Augmentin Cleared for discharge from the pulmonary standpoint Follow-up in our office in 1 week This patient was seen independently by the pulmonary nurse practitioner addressing pulmonary issues I have personally seen and examined the patient, performed the documentation and the assessment and plan as written. Number of minutes spent on the visit: 22.
--- NOTE | 2023-11-15 13:37 | P.DS ---
Providers Date of admission: 11/13/23 12:33 Expected date of discharge: 11/15/23 Attending physician: Gavin Luis Consults: 11/13/23 12:19 Consult Physician Routine Consulting Provider: Brodie Cope Consult Reason/Comments: Pneumonia Do you want consulting provider notified?: Yes Primary care physician: Gavin Luis Hospital Course: Final Diagnoses: Bibasilar atelectasis, with acute tracheobronchitis .less likely early community-acquired pneumonia, normal procalcitonin level as per pulmonary. Transaminitis, etiology unclear History of pneumonia Hypothyroidism Osteoarthritis Former nicotine dependence Hospital course:This is a 73-year-old female with past medical history significant for pneumonia, osteoarthritis, hypothyroidism, former nicotine dependence, environmental allergies and multiple other medical issues presented to the ER with complaints of ongoing shortness of breath and nonproductive cough worsening over the last 4 days, accompanied by nausea, decreased appetite and subsequent increased weakness. Afebrile, normal WBC , normal procalcitonin, 0.36. Hematology panel unremarkable. Renal function stable.mildly elevated LFTs. viral screening negative. UA reported moderate leukocyte esterases, negative nitrates. Nauseated, denies abdominal pain. chest x-ray reported no evidence for acute pulmonary disease, hyperinflation compatible with COPD, no evidence for infiltrate, left basilar linear atelectasis or parenchymal scar unchanged.Abdomen /pelvis CT reported no acute intra-abdominal pelvic process, trace bilateral pleural effusions with bilateral lower lobe patchy groundglass and consolidative opacities concerning for pneumonia versus atelectasis. Repeat chest x-ray this morning pending. Denies chest pain, palpitations or increase shortness of breath. Maintaining O2 sats in the 90s on room air. Aggressive pulmonary toileting, maintain IV antibiotics, nebulized bronchodilators. discharge planning in progress pending chest x-ray, final DC recommendations and clearance per pulmonary. Significant clinical improvement. Continues on azithromycin and ceftriaxone. maintaining O2 sats in the 90s on room air. Cough improved, reports lessening congestion. Unlabored ,equal air entry with no crackles ,wheezes or rhonchi. denies chest pain, palpitations or shortness of breath. Chest x-ray reporting mainly right lung base atelectasis as per pulmonary's review. Cleared by pulmonary for discharge, recommending a week of antibiotics. Patient will be discharged home today in a stable condition with guarded prognosis. The impression and plan of care has been dictated as directed. : I performed a history and examination of this patient, discussed the same with the dictator. I agree with the dictator's note ,documented as a scribe. Any additional findings or plans will be noted. Patient Condition at Discharge: Stable Plan - Discharge Summary New Discharge Prescriptions: New Amoxic-Pot Clav 875-125Mg [Augmentin 875-125] 1 tab PO BID 7 Days #14 tab Famotidine [Pepcid] 20 mg PO DAILY #7 tablet Albuterol Sulfate [Albuterol Sulfate Hfa] 2 puff PO Q6H PRN #8.5 gm PRN Reason: Shortness Of Breath Continue Levothyroxine Sodium [Synthroid] 50 mcg PO DAILY Meclizine [Antivert] 50 mg PO TID PRN PRN Reason: Vertigo Loratadine 10 mg PO DAILY Cholecalciferol [Vitamin D3 (25 Mcg = 1000 Iu)] 25 mcg PO DAILY Multivit-Min/FA/Lycopen/Lutein [Centrum Silver Tablet] 1 tab PO DAILY Magnesium 250 mg PO DAILY Fluticasone Nasal [place] [Flonase Nasal [place]] 2 spray EA NOSTRIL HS PRN PRN Reason: Allergy Symptoms Escitalopram [Lexapro] 10 mg PO DAILY Discharge Medication List Levothyroxine Sodium [Synthroid] 50 mcg PO DAILY 02/23/18 [History] Loratadine 10 mg PO DAILY 04/21/20 [History] Meclizine [Antivert] 50 mg PO TID PRN 04/21/20 [History] Cholecalciferol [Vitamin D3 (25 Mcg = 1000 Iu)] 25 mcg PO DAILY 11/13/23 [History] Escitalopram [Lexapro] 10 mg PO DAILY 11/13/23 [History] Fluticasone Nasal [place] [Flonase Nasal [place]] 2 spray EA NOSTRIL HS PRN 11/13/23 [History] Magnesium 250 mg PO DAILY 11/13/23 [History] Multivit-Min/FA/Lycopen/Lutein [Centrum Silver Tablet] 1 tab PO DAILY 11/13/23 [History] Albuterol Sulfate [Albuterol Sulfate Hfa] 2 puff PO Q6H PRN #8.5 gm 11/15/23 [Rx] Amoxic-Pot Clav 875-125Mg [Augmentin 875-125] 1 tab PO BID 7 Days #14 tab 11/15/23 [Rx] Famotidine [Pepcid] 20 mg PO DAILY #7 tablet 11/15/23 [Rx] Follow up Appointment(s)/Referral(s): Brodie Cope MD [STAFF PHYSICIAN] - 1 Week Gavin Luis DO [Primary Care Provider] - 1 Week Patient Instructions/Handouts: Pneumonitis (DC) Discharge Disposition: HOME SELF-CARE
== END 2023-11-15 11:55 | disposition home or self-care (01) | DRG 202 ==
LOC: EC 08:28 → 4SSUR 12:33 → 1SOBS 19:53
PROVIDERS: ADMIT Family Medicine; ATTEND Family Medicine
DX: J20.9 Acute bronchitis, unspecified (principal); J98.11 Atelectasis; R74.01 Elevation of levels of liver transaminase levels; I95.9 Hypotension, unspecified; F32.A Depression, unspecified; E03.9 Hypothyroidism, unspecified; M19.90 Unspecified osteoarthritis, unspecified site; Z88.2 Allergy status to sulfonamides; Z88.6 Allergy status to analgesic agent; Z88.5 Allergy status to narcotic agent; Z87.891 Personal history of nicotine dependence; Z87.01 Personal history of pneumonia (recurrent); Z79.899 Other long term (current) drug therapy; Z79.890 Hormone replacement therapy
CPT/HCPCS: 36415; 71045; 71046; 74177; 80053; 81001; 83605; 83735; 84145; 84484; 85025; 87040; 87449; 87636; 93005; 94640; 96361; 96365; 96366; 96368; 99285